=== PATIENT | male | born 1955 | race Caucasian/White ===

== ENCOUNTER 2016-10-25 09:03 | Emergency (ER) | payer MEDICARE ==
[2016-10-25 09:51] LABS: #Basophils 0.1 thou/uL (0.0-0.2); #Eosinphils 0.1 thou/uL (0.0-0.7); #Lymphocytes 1.4 thou/uL (1.20-3.40); #Monocytes 0.5 thou/uL (0.11-0.59); #Neutrophils 3.9 thou/uL (1.40-6.50); %Basophils 1.2 % (0.0-1.0); %Eosinophils 1.5 % (0.0-10.0); %Lymphocytes 23.9 % (21.0-51.0); %Monocytes 7.6 % (0.0-10.0); %Neutrophils 65.8 % (42.0-75.0); Hemoglobin 15.2 g/dL (14.0-18.0); Mean Corpuscular HGB CONC 33.3 g/dL (32.0-36.0); Mean Corpuscular Hemoglobin 28.3 pg (27.0-31.0); Mean Corpuscular Volume 84.9 fl (80.0-94.0); Mean Platelet Volume 7.5 fL (7.4-10.4); Platelet Count 197 thou/uL (130-400); RBC Distribution Width 11.3 % (11.5-14.5); Red Blood Cell (RBC) Count 5.39 mill/uL (4.70-6.10); White Blood Cell (WBC) Count 5.9 thou/uL (4.8-10.8)
[2016-10-25 10:02] LABS: ALT (SGPT) 19 U/L (8-55); AST (SGOT) 14 U/L (5-34); Albumin 3.3 g/dL (3.5-5.0); Alkaline Phosphatase 97 U/L (40-150); Anion Gap 11 mmol/L (10-20); BUN (Urea Nitrogen) 15 mg/dL (8.4-25.7); Bilirubin, Total 0.7 mg/dL (0.2-1.2); CK (CPK) 65 U/L (30-200); Calc. Creatinine Clearance 0 mL/min (70-130); Calcium 8.5 mg/dL (7.8-10.44); Carbon Dioxide 24 mmol/L (22-29); Chloride 106 mmol/L (98-107); Estimated GFR-MDRD 82; Globulin 3.6 g/dL (2.4-3.5); Glucose 302 mg/dL (70-105); Potassium 3.8 mmol/L (3.5-5.1); Protein, Total 6.9 g/dL (6.0-8.3); Sodium 137 mmol/L (136-145)
--- NOTE | 2016-10-25 10:02 | RAD ---
CHEST 1 VIEW: HISTORY: Chest pain. COMPARISON: Chest 1 view 09/22/14. FINDINGS: Heart size is enlarged. There is layering left effusion. There are airspace opacities in both lung bases. There are median sternotomy wires. No acute osseous abnormality. IMPRESSION: Cardiomegaly with edema and left effusion. Findings concerning for congestive heart failure. Follo wup recommended. POS: [facility]
[2016-10-25 10:06] LABS: CKMB 2.2 ng/mL (0-6.6); Troponin I 0.015 ng/mL (< 0.028)
== END 2016-10-25 10:22 | disposition home or self-care (01) ==
LOC: MADERS 09:03
DX: I50.9 Heart failure, unspecified (principal); E11.9 Type 2 diabetes mellitus without complications; Z86.73 Personal history of transient ischemic attack (TIA), and cerebral infarction without residual deficits
CPT/HCPCS: 36415; 71010; 80053; 82550; 82553; 83880; 84484; 85025; 93005